=== PATIENT | female | born 1955 | race Caucasian/White ===

== ENCOUNTER 2017-11-22 10:31 | Day surgery (SDC) | payer OTHER ==
[2017-11-22] MEDS ORDERED: MIDAZOLAM 1 MG/ML 2 ML INJ ×2 (12:40)
[2017-11-22] MEDS ORDERED: FENTAnyl 50 MCG/ML VIAL (12:40)
== END 2017-11-22 13:24 | disposition home or self-care (01) ==
LOC: GIL 10:31
DX: Z12.11 Encounter for screening for malignant neoplasm of colon (principal); K57.90 Diverticulosis of intestine, part unspecified, without perforation or abscess without bleeding; K64.8 Other hemorrhoids; E11.9 Type 2 diabetes mellitus without complications
CPT/HCPCS: 45380; 88305